=== PATIENT | male | born 1995 | race African-American/Black ===

== ENCOUNTER 2016-12-27 09:17 | Emergency (ER) | payer OTHER ==
[~2016-12-27] VITALS: Ht 175.3 cm; Wt 62.0 kg
[~2016-12-27 09:17] MED LIST: BENZ1TAB PO; DEPA500T3 PO; FLUP1INJ SQ; FLUP5TAB PO
[2016-12-27 09:20] VITALS: BP 125/58; PULSE 68; RESP 15; TEMP 98.1; O2SAT 99
--- NOTE | 2016-12-27 09:47 | PD ---
HPI Chief Complaint: Psychiatric Symptoms Time Seen by Provider: 09:33 Travel History International Travel<30 days: No Contact w/Intl Traveler<30days: No Traveled to known affect area: No History of Present Illness HPI 21-year-old male presents off his medications. He has history of schizophrenia in the records. Patient is a very poor historian. He states that he wants me to look at his throat because it might be off since he ate something weird. He denies fever when I asked but then he starts to state that he is concerned because he needs to eat something fresh. He states he lives with his sister. PFS Past Medical History Narrative Medical By records Hx Anticoagulant Therapy: No Anxiety: Yes Depression: Yes Cancer: No (see emr) Cardiovascular Problems: No (see emr) Chemotherapy: No Cerebrovascular Accident: No Diabetes: No (see emr) Diminished Hearing: No Gastrointestinal Disorders: Yes (STATES STOMACH IS SMALL) Genitourinary: No Headaches: No (see emr) Musculoskeletal: No Psychiatric: Yes (May have compliance problems) Respiratory: No Immunizations Current: Yes Schizophrenia: Yes Seizures: No (see emr) Past Surgical History Surgical History: No Previous Surgery Section: No (see emr) Social History Narrative Social History By records, to me denies Alcohol Use: Yes (Pt denies.) Tobacco Use: No (Pt denies.) Substance Use: Yes (admits to prior history of K2/Flakka use.) Allergies-Medications (Allergen,Severity, Reaction): Coded Allergies: No Known Allergies (Unverified , 12/27/16) Per pt. Reported Meds & Prescriptions Reported Meds & Active Scripts Active Fluphenazine Decanoate Inj (Fluphenazine Decanoate) 125 Mg/5 Ml Inj 25 Mg SQ Q21D Next dose of fluphenazine decanoate due on 07/29/2016. Fluphenazine (Fluphenazine HCl) 5 Mg Tab 5 Mg PO TID 10 Days Talk with your doctor about decreasing the dose of oral Prolixin (fluphenazine) after your next Prolixin Decanoate injection. Depakote ER (Divalproex Sodium) 500 Mg Sanchez 1,000 Mg PO HS 10 Days Review of Systems ROS Limitations: Poor Historian Physical Exam Exam Limitations: Poor Historian Narrative GENERAL: Well-nourished, well-developed patient. Pacing in room SKIN: Warm and dry. HEAD: Normocephalic and atraumatic. EYES: No injection or drainage. ENT: No nasal drainage noted. Mucosa pink and moist. No erythema or exudates. No uvular edema. No uvular, palatal, or tonsillar deviation. Airway patent. NECK: Supple, trachea midline. CARDIOVASCULAR: Regular rate and rhythm RESPIRATORY: Breath sounds equal bilaterally. No accessory muscle use. GASTROINTESTINAL: Abdomen soft, non-tender, nondistended. EXTREMITIES: No edema. NEUROLOGICAL: Awake and alert to name. Motor and sensory grossly within normal limits. Normal speech. Data Data Last Documented VS Vital Signs Date Time Temp Pulse Resp B/P Pulse Ox O2 Delivery O2 Flow Rate FiO2 12/27/16 12:31 58 16 129/76 96 12/27/16 09:20 98.1 Orders Complete Blood Count With Diff (12/27/16 09:40) Basic Metabolic Panel (Bmp) (12/27/16 09:40) Psych Screen (12/27/16 09:40) Drug Screen, Random Urine (12/27/16 09:40) Alcohol (Ethanol) (12/27/16 09:40) Ziprasidone Inj (Geodon Inj) (12/27/16 10:15) Labs Laboratory Tests Test 12/27/16 12/27/16 09:35 09:45 Urine Opiates Screen NEG Urine Barbiturates Screen NEG Urine Amphetamines Screen NEG Urine Benzodiazepines Screen NEG Urine Cocaine Screen NEG Urine Cannabinoids Screen NEG White Blood Count 9.8 TH/MM3 Red Blood Count 4.62 MIL/MM3 Hemoglobin 14.4 GM/DL Hematocrit 41.9 % Mean Corpuscular Volume 90.7 FL Mean Corpuscular Hemoglobin 31.1 PG Mean Corpuscular Hemoglobin 34.3 % Concent Red Cell Distribution Width 13.0 % Platelet Count 194 TH/MM3 Mean Platelet Volume 8.3 FL Neutrophils (%) (Auto) 75.6 % Lymphocytes (%) (Auto) 14.1 % Monocytes (%) (Auto) 10.0 % Eosinophils (%) (Auto) 0.1 % Basophils (%) (Auto) 0.2 % Neutrophils # (Auto) 7.4 TH/MM3 Lymphocytes # (Auto) 1.4 TH/MM3 Monocytes # (Auto) 1.0 TH/MM3 Eosinophils # (Auto) 0.0 TH/MM3 Basophils # (Auto) 0.0 TH/MM3 CBC Comment DIFF FINAL Differential Comment Sodium Level 139 MEQ/L Potassium Level 3.8 MEQ/L Chloride Level 101 MEQ/L Carbon Dioxide Level 28.1 MEQ/L Anion Gap 10 MEQ/L Blood Urea Nitrogen 9 MG/DL Creatinine 0.93 MG/DL Estimat Glomerular Filtration 126 ML/MIN Rate Random Glucose 113 MG/DL Calcium Level 9.4 MG/DL Ethyl Alcohol Level LESS THAN 3 MG/DL MDM Medical Decision Making Medical Screen Exam Complete: Yes Emergency Medical Condition: Yes Medical Record Reviewed: Yes (pmh confirmed) Interpretation(s) CBC & BMP Diagram 12/27/16 09:45 Differential Diagnosis Schizophrenia off medications, URI, electrolyte abnormality Narrative Course Will check blood work and have psychiatry team screen as he appears to be a schizophrenic off his medications. no SI/HI, Mental health screening discussed with the patient. Psychiatric screen ordered. patient getting more anxious and pacing more, will dose with geodon im and reeval as patient states wants something to help with his mind, medically cleared Psychiatrist evaluated patient and he is stable for discharge. Diagnosis Primary Impression: Schizophrenia Qualified Code: F20.9 - Schizophrenia, unspecified type Patient Instructions: General Instructions Additional Instructions: fill your medications, follow with nini christiansen today, return with any emergent need Med/Other Pt SpecificInfo: Other Disposition: 01 DISCHARGE HOME Condition: Stable Mary Wright MD December 27, 2016 09:47
[2016-12-27 10:02] LABS: AUTOMATED NEUTROPHIL # 7.4 TH/MM3 (1.8-7.7); BASOPHIL % 0.2 % (0.0-2.0); EOSINOPHIL % 0.1 % (0.0-4.0); HEMATOCRIT 41.9 % (39.0-51.0); HEMO FLAGS DIFF FINAL; LYMPH % 14.1 % (9.0-44.0); LYMPHOCYTE # 1.4 TH/MM3 (1.0-4.8); MEAN CELL VOLUME 90.7 FL (80.0-100.0); MEAN CORPUSCULAR HEMOGLOBIN 31.1 PG (27.0-34.0); MEAN CORPUSCULAR HGB CONC 34.3 % (32.0-36.0); NEUT % 75.6 % (16.0-70.0); PLATELET COUNT 194 TH/MM3 (150-450); RED BLOOD COUNT 4.62 MIL/MM3 (4.50-5.90); WHITE BLOOD COUNT 9.8 TH/MM3 (4.0-11.0)
[2016-12-27 10:13] LABS: AMPHETAMINE, URINE NEG (NEG); BARBITURATES, URINE NEG (NEG); COCAINE, URINE NEG (NEG)
[2016-12-27] MEDS ORDERED: ZIPRASIDONE MESYLATE 20 MG VIAL IM ONE (10:15)
[2016-12-27 10:27] LABS: ANION GAP 10 MEQ/L (5-15); BICARBONATE 28.1 MEQ/L (21.0-32.0); BLOOD UREA NITROGEN 9 MG/DL (7-18); CHLORIDE 101 MEQ/L (98-107); GLOMERULAR FILTRATION RATE 126 ML/MIN (>89); POTASSIUM 3.8 MEQ/L (3.5-5.1); SODIUM (NA) 139 MEQ/L (136-145)
--- NOTE | 2016-12-27 11:35 | PD ---
History of Present Illness Chief Complaint: Psychiatric Symptoms Time Seen by Provider: 11:15 Travel History International Travel<30 Days: No Contact w/Intl Traveler<30days: No Known affected area: No Legal Status Legal Status: Voluntary History of Present Illness: 21-year-old male brought in voluntarily by police. This physician reviewed the ED D attendings note and patient provided the exact same history to me. He does exhibit looseness of associations which is a symptom of psychosis. He has not been taking his antipsychotic medicine recently, stating "I'm good". He admits to being treated by [facility] in the past. He states he is able to get a follow up appointment there. He would like something to eat and he would like something for the pain in his throat, including Tylenol. This physician finds that even though the patient is likely psychotic with a history of schizophrenia, he currently does not meet Michael act criteria. He states he lives with his sister and he can return there. He repeatedly indicates he has no suicidal or homicidal ideation, plan or intent. His psychosis is not so significant at this point that he is unable to care for himself. Therefore he is being released per his own request. PFSH Past Medical History Medical History: Denies Significant Hx Hx Anticoagulant Therapy: No Weight (Kg): UNK Anxiety: Yes Depression: Yes Chemotherapy: No Cerebrovascular Accident: No Diminished Hearing: No Gastrointestinal Disorders: Yes (STATES STOMACH IS SMALL) Genitourinary: No Musculoskeletal: No Psychiatric: Yes (May have compliance problems) Respiratory: No Immunizations Current: Yes Schizophrenia: Yes Past Surgical History Surgical History: No Previous Surgery Psychiatric History Psychiatric History Hx Psychiatric Treatment: See records for historical records.Many In-Pt stays History of Inpatient Treatment: Yes Guns or firearms in home: No Social History Hx Alcohol Use: No (see emr) Hx Tobacco Use: No (Pt denies.) Hx Substance Use: No (see emr) Substance Use Type: Alcohol Other Substances Used: STATES HE USED DRUGS IN THE PAST Hx of Substance Use Treatment: No Allergies-Medications (Allergen,Severity, Reaction): Coded Allergies: No Known Allergies (Unverified , 12/27/16) Per pt. Reported Meds & Prescriptions Reported Meds & Active Scripts Active Fluphenazine Decanoate Inj (Fluphenazine Decanoate) 125 Mg/5 Ml Inj 25 Mg SQ Q21D Next dose of fluphenazine decanoate due on 07/29/2016. Fluphenazine (Fluphenazine HCl) 5 Mg Tab 5 Mg PO TID 10 Days Talk with your doctor about decreasing the dose of oral Prolixin (fluphenazine) after your next Prolixin Decanoate injection. Depakote ER (Divalproex Sodium) 500 Mg Sanchez 1,000 Mg PO HS 10 Days Review of Systems ROS Limitations: Clinical Condition, Poor Historian Except as stated in HPI: all other systems reviewed are Neg Exam Exam Limitations: Clinical Condition, Psychotic Alert: Yes [place]: Person, Place, Date, Situation Mood: Calm Affect: Appropriate Speech: Clear, Tangential Eye Contact: Indirect Memory Intact: Immediate, Recent, Remote Insight/Judgement Impaired, but not to the degree that he meets Michael act criteria. MDM Medical Decision Making Medical Record Reviewed: Yes Assessment/Plan Patient was offered refills on his psychotropic medications but declined. Patient states he is willing to return to his sister's home and seek follow up at [facility]. This was encouraged by this physician. Therefore, this physician feels the patient should not be Michael acted and he does not need inpatient psychiatric hospitalization at this time. Orders Complete Blood Count With Diff (12/27/16 09:40) Basic Metabolic Panel (Bmp) (12/27/16 09:40) Psych Screen (12/27/16 09:40) Drug Screen, Random Urine (12/27/16 09:40) Alcohol (Ethanol) (12/27/16 09:40) Ziprasidone Inj (Geodon Inj) (12/27/16 10:15) Results Vital Signs Date Time Temp Pulse Resp B/P Pulse Ox O2 Delivery O2 Flow Rate FiO2 12/27/16 09:20 98.1 68 15 125/58 99 Laboratory Tests Test 12/27/16 12/27/16 09:35 09:45 Urine Opiates Screen NEG Urine Barbiturates Screen NEG Urine Amphetamines Screen NEG Urine Benzodiazepines Screen NEG Urine Cocaine Screen NEG Urine Cannabinoids Screen NEG White Blood Count 9.8 Red Blood Count 4.62 Hemoglobin 14.4 Hematocrit 41.9 Mean Corpuscular Volume 90.7 Mean Corpuscular Hemoglobin 31.1 Mean Corpuscular Hemoglobin 34.3 Concent Red Cell Distribution Width 13.0 Platelet Count 194 Mean Platelet Volume 8.3 Neutrophils (%) (Auto) 75.6 Lymphocytes (%) (Auto) 14.1 Monocytes (%) (Auto) 10.0 Eosinophils (%) (Auto) 0.1 Basophils (%) (Auto) 0.2 Neutrophils # (Auto) 7.4 Lymphocytes # (Auto) 1.4 Monocytes # (Auto) 1.0 Eosinophils # (Auto) 0.0 Basophils # (Auto) 0.0 CBC Comment DIFF FINAL Differential Comment Sodium Level 139 Potassium Level 3.8 Chloride Level 101 Carbon Dioxide Level 28.1 Anion Gap 10 Blood Urea Nitrogen 9 Creatinine 0.93 Estimat Glomerular Filtration 126 Rate Random Glucose 113 Calcium Level 9.4 Ethyl Alcohol Level LESS THAN 3 Diagnosis Primary Impression: Schizophrenia, disorganized type Michael Carnes MD December 27, 2016 11:35
[2016-12-27 12:31] VITALS: BP 129/76
== END 2016-12-27 12:58 | disposition home or self-care (01) ==
LOC: NEPC 09:17
DX: F20.1 Disorganized schizophrenia (principal)
CPT/HCPCS: 80048; 80307; 85025; 96372; 99284; J3486

== ENCOUNTER 2017-03-22 23:18 | Emergency (ER) | payer OTHER ==
[~2017-03-22] VITALS: Ht 175.3 cm; Wt 65.0 kg
[~2017-03-22 23:18] MED LIST changes: -BENZ1TAB PO
[2017-03-22 23:21] VITALS: BP 115/67; PULSE 89; RESP 16; TEMP 98.2; O2SAT 99
== END 2017-03-23 | disposition left against medical advice (07) ==
LOC: NED 23:18
DX: M79.1 Myalgia (principal); Z53.21 Procedure and treatment not carried out due to patient leaving prior to being seen by health care provider
CPT/HCPCS: 99281

== ENCOUNTER 2018-07-10 23:20 | Inpatient (IN) ==
[2018-07-11] MEDS ORDERED: Piperacil/Tazo 4.5 GM Premix 4.5 GM/100 ML BAG IV.SIG ONE (00:17)
[2018-07-11] MEDS ORDERED: Dexamethasone Inj 20 MG/5 ML Vial IV.PUSH ONE (00:17)
[2018-07-11] MEDS ORDERED: Acetaminophen 325 MG Tablet PO ONE (00:17)
[2018-07-11] MEDS ORDERED: Sod Chloride 0.9% Inj 1,000 ML IV.SIG SCH (00:30)
[2018-07-11 00:43] LABS: Baso % (Auto) 0.4 % (0.0-2.0); Eos # (Auto) 0.1 th/mm3 (0.0-0.4); Eos % (Auto) 0.6 % (0.0-4.0); Hematocrit 42.2 % (39.0-51.0); Hemoglobin 14.4 gm/dL (13.0-17.0); Lymph # (Auto) 1.7 th/mm3 (1.0-4.8); Lymph % (Auto) 14.9 % (9.0-44.0); Mean Corpuscular Hemoglobin 32.3 pg (27.0-34.0); Mean Corpuscular Volume 94.9 fL (80.0-100.0); Mean Platelet Volume 7.7 fL (7.0-11.0); Mono # (Auto) 1.4 th/mm3 (0.0-0.9); Mono % (Auto) 12.2 % (0.0-8.0); Neut # (Auto) 8.5 th/mm3 (1.8-7.7); Neut % (Auto) 71.9 % (16.0-70.0); Platelet Count 213 th/mm3 (150-450); Red Blood Count 4.45 mil/mm3 (4.50-5.90); White Blood Count 11.8 th/mm3 (4.0-11.0)
--- NOTE | 2018-07-11 00:46 | ED ---
HPI General Chief complaint: Respiratory Symptoms Stated complaint: Sore throat Time Seen by Provider: 07/10/18 23:29 History of Present Illness HPI narrative: Patient is a 22-year-old male presents emergency department for evaluation of sore throat, difficulty swallowing spitting up phlegm and just not feeling well for the past few days. He states he is otherwise healthy. Patient states that his never had this happen to him before, no chest pain no shortness of breath. He also endorse some right-sided ear pain as well as some right-sided jaw pain. He states he needs some advice on what he can eat while he is getting over this. Symptoms moderate, for the past few days, gradually worsening, associated signs symptoms in context as above. Related Data Previous Rx's Medication Instructions Recorded amoxicillin-pot clavulanate 1 tab PO BID #28 tab 07/11/18 [Augmentin] olanzapine 10 mg PO HS #0 tab 07/11/18 prednisone 20 mg PO DAILY #5 tab 07/11/18 Allergies Allergy/AdvReac Type Severity Reaction Status Date / Time No Known Allergies Allergy Verified 07/10/18 23:24 Review of Systems ROS: all other systems reviewed are negative PMFSH Medical History Medical History Depression (Acute) Patient denies medical problems (Acute) Surgical History Surgical History No history of previous surgery (Acute) Family History Family History Other No pertinent family history Social History Social History Substance History: Active Abuse Second Hand Smoke Exposure: No Smoking Status: Never smoker Tobacco Type: Cigarettes How Often Do You Have a Drink Containing Alcohol: Never Recent Travel in [facility] within the Last 8 Weeks: No Recent Out of Country Travel within the Last 8 Weeks: No Substance Abuse Detail Marijuana: Substance Use Status: Active Immunization History Tetanus Immunization: Unsure Exam Narrative Exam Narrative: GENERAL: Well-developed well-nourished no obvious distress, tolerating his secretions well. No stridor. SKIN: Focused skin assessment warm/dry. HEAD: Atraumatic. Normocephalic. EYES: Pupils equal and round. No scleral icterus. No injection or drainage. ENT: No nasal bleeding or discharge. Mucous membranes pink and moist. No stridor, there is a significant right sided peritonsillar abscess, he only has one finger trismus preventing examination of the posterior oropharynx. He does appear to be protecting his airway. He is able to swallow. There is some right -sided lymphadenopathy on the anterior cervical chain. There is also tenderness over the right TMJ. There is no mastoid tenderness. TMs are clear bilaterally. There is no erythema the anterior neck, NECK: Trachea midline. No JVD. CARDIOVASCULAR: Regular rate and rhythm. No murmur appreciated. No murmurs gallops rubs, no Morena's crunch. RESPIRATORY: No accessory muscle use. Clear to auscultation. Breath sounds equal bilaterally. GASTROINTESTINAL: Abdomen soft, non-tender, nondistended. Hepatic and splenic margins not palpable. MUSCULOSKELETAL: No obvious deformities. No clubbing. No cyanosis. No edema. NEUROLOGICAL: Awake and alert. No obvious cranial nerve deficits. Motor grossly within normal limits. Normal speech. PSYCHIATRIC: Appropriate mood and affect; insight and judgment normal. Course Initial Documented Vital Signs Temperature 100.5 F H 07/10/18 23:24 Pulse Rate 79 07/10/18 23:24 Respiratory Rate 18 07/10/18 23:24 Blood Pressure 114/61 07/10/18 23:24 Pulse Oximetry 99 07/10/18 23:24 Last Documented Vital Signs Temperature 98.3 F 07/12/18 16:00 Pulse Rate 75 07/12/18 16:00 Respiratory Rate 17 07/12/18 16:00 Blood Pressure 110/60 07/12/18 16:00 Pulse Oximetry 100 07/12/18 16:00 Medical Decision Making [facility] Narrative Medical decision making narrative: Patient room in the emergency department, he appears to have a peritonsillar abscess febrile to 100.5. Decadron 10 mg, Tylenol, Zosyn ordered for him, blood cultures ordered and a CT scan is pending. The end of my shift at the patient was discussed with Dr. Grijalva who will assume care of the patient. Discussed the patient will probably require admission to the hospital.. 1:38 AM. Patient was seen by ED physician and signed out to me. CT scan soft tissue neck shows peritonsillar abscess. Patient will be admitted with ENT consultation. Medical Screen Exam Complete: Yes Emergency Medical Condition: Yes Lab Data Lab results reviewed: Yes I reviewed the patient's lab results. Result diagrams: 07/11/18 05:33 07/12/18 08:24 Lab Results 07/11/18 07/11/18 07/11/18 Range/Units 00:33 00:33 00:33 WBC 11.8 H (4.0-11.0) th/mm3 RBC 4.45 L (4.50-5.90) mil/mm3 Hgb 14.4 (13.0-17.0) gm/dL Hct 42.2 (39.0-51.0) % MCV 94.9 (80.0-100.0) fL MCH 32.3 (27.0-34.0) pg MCHC 34.0 (32.0-36.0) % RDW 13.0 (11.6-17.2) % Plt Count 213 (150-450) th/mm3 MPV 7.7 (7.0-11.0) fL Neut % (Auto) 71.9 H (16.0-70.0) % Lymph % (Auto) 14.9 (9.0-44.0) % [place] % (Auto) 12.2 H (0.0-8.0) % Eos % (Auto) 0.6 (0.0-4.0) % Baso % (Auto) 0.4 (0.0-2.0) % Neut # (Auto) 8.5 H (1.8-7.7) th/mm3 Lymph # (Auto) 1.7 (1.0-4.8) th/mm3 [place] # (Auto) 1.4 H (0.0-0.9) th/mm3 Eos # (Auto) 0.1 (0.0-0.4) th/mm3 Baso # (Auto) 0.0 (0.0-0.2) th/mm3 WBC Differential . Differential Comment Auto diff final Sodium 138 (136-145) meq/L Potassium 4.1 (3.5-5.1) meq/L Chloride 100 (98-107) meq/L Carbon Dioxide 33.9 H (21.0-32.0) meq/L Anion Gap 4 L (5-15) meq/L BUN 7 (7-18) mg/dL Creatinine 0.93 (0.60-1.30) mg/dL Estimated GFR Greater than 89 (>89) mL/min Random Glucose 100 (74-106) mg/dL Lactic Acid 0.5 (0.4-2.0) mmol/L Calcium 8.8 (8.5-10.1) mg/dL Magnesium 2.2 (1.5-2.5) mg/dL Total Bilirubin 0.8 (0.2-1.0) mg/dL AST 22 (15-37) U/L ALT 24 (12-78) U/L Alkaline Phosphatase 77 (45-117) U/L Total Protein 8.3 H (6.4-8.2) g/dL Albumin 3.5 (3.4-5.0) g/dL Lipase 48 L (73-393) U/L Urine Color (Yellw/Straw) Urine Clarity (Clear) Urine pH (5.0-8.5) Ur Specific [place] (1.002-1.035) Urine Protein (Neg-Trace) mg/dL Urine Glucose (UA) (Negative) mg/dL Urine Ketones (Negative) mg/dL Urine Occult Blood (Negative) Urine Nitrate (Negative) Urine Bilirubin (Negative) Urine Urobilinogen (Less than 2) mg/dL Ur Leukocyte Esterase (Negative) Urine RBC (0-3) /hpf Urine WBC (0-5) /hpf Micro UA Comment Ur Microscopic Review Urine Culture Comments 07/11/18 07/11/18 07/12/18 Range/Units 00:46 05:33 08:24 WBC 15.2 H (4.0-11.0) th/mm3 RBC 4.61 (4.50-5.90) mil/mm3 Hgb 15.3 (13.0-17.0) gm/dL Hct 43.9 (39.0-51.0) % MCV 95.1 (80.0-100.0) fL MCH 33.3 (27.0-34.0) pg MCHC 35.0 (32.0-36.0) % RDW 12.7 (11.6-17.2) % Plt Count 203 (150-450) th/mm3 MPV 7.9 (7.0-11.0) fL Neut % (Auto) 90.0 H (16.0-70.0) % Lymph % (Auto) 6.7 L (9.0-44.0) % [place] % (Auto) 3.0 (0.0-8.0) % Eos % (Auto) 0.0 (0.0-4.0) % Baso % (Auto) 0.3 (0.0-2.0) % Neut # (Auto) 13.6 H (1.8-7.7) th/mm3 Lymph # (Auto) 1.0 (1.0-4.8) th/mm3 [place] # (Auto) 0.4 (0.0-0.9) th/mm3 Eos # (Auto) 0.0 (0.0-0.4) th/mm3 Baso # (Auto) 0.0 (0.0-0.2) th/mm3 WBC Differential . Differential Comment Auto diff final Sodium 141 (136-145) meq/L Potassium 4.3 (3.5-5.1) meq/L Chloride 103 (98-107) meq/L Carbon Dioxide 33.1 H (21.0-32.0) meq/L Anion Gap 5 (5-15) meq/L BUN 12 (7-18) mg/dL Creatinine 0.90 (0.60-1.30) mg/dL Estimated GFR Greater than 89 (>89) mL/min Random Glucose 105 (74-106) mg/dL Lactic Acid (0.4-2.0) mmol/L Calcium 9.2 (8.5-10.1) mg/dL Magnesium (1.5-2.5) mg/dL Total Bilirubin 0.4 (0.2-1.0) mg/dL AST 12 L (15-37) U/L ALT 20 (12-78) U/L Alkaline Phosphatase 77 (45-117) U/L Total Protein 8.1 (6.4-8.2) g/dL Albumin 3.4 (3.4-5.0) g/dL Lipase (73-393) U/L Urine Color Yellow (Yellw/Straw) Urine Clarity Clear (Clear) Urine pH 6.0 (5.0-8.5) Ur Specific [place] 1.008 (1.002-1.035) Urine Protein Negative (Neg-Trace) mg/dL Urine Glucose (UA) Negative (Negative) mg/dL Urine Ketones Negative (Negative) mg/dL Urine Occult Blood Small H (Negative) Urine Nitrate Negative (Negative) Urine Bilirubin Negative (Negative) Urine Urobilinogen 1.0 (Less than 2) mg/dL Ur Leukocyte Esterase Negative (Negative) Urine RBC 1 (0-3) /hpf Urine WBC Less than 1 (0-5) /hpf Micro UA Comment Culture not ind Ur Microscopic Review Not Reportable Urine Culture Comments Culture not ind Imaging Data Attestation: I personally reviewed and interpreted this imaging study as follows : Radiologist's impression: Soft Tissue Neck CT 07/11/18 00:18 CONCLUSION: 1. 4 cm right-sided tonsillar abscess. 2. Mild right maxillary sinus disease. Discharge Plan Discharge Disposition Patient Disposition: ED Admit(ED Internal Use Only) Discharge Condition Condition: Stable Discharge Order Discharge Orders: Discharge Order (Routine); Ordered 07/12/18 Ordered By: Michael Geller ED Use Only Admit Order (Routine); Ordered 07/11/18 Ordered By: Tod Grijalva Discharge Details Diagnosis: Abscess, peritonsillar Physicians Team ED Provider: Dwayne Hua Primary Care Provider: Primary Care Esperanza William Attending Provider: Michael Geller Other Providers: Fuentes Caavnaugh Status ED Status: Left Department Discharge Information Discharge Date/Time: 07/11/18 15:23
[2018-07-11 00:58] LABS: Bilirubin,Urine Negative (Negative); Clarity,Urine Clear (Clear); Color,Urine Yellow (Yellw/Straw); Glucose,Urine (UA) Negative (Negative); Leukocyte Esterase,Urine Negative (Negative); Nitrite,Urine Negative (Negative); Specific Gravity,Urine 1.008 (1.002-1.035)
[2018-07-11 01:15] LABS: Alkaline Phosphatase 77 U/L (45-117); Total Protein 8.3 g/dL (6.4-8.2)
[2018-07-11 01:20] LABS: Alanine Aminotransferase 24 U/L (12-78); Albumin 3.5 g/dL (3.4-5.0); Anion Gap 4 meq/L (5-15); Aspartate Aminotransferase 22 U/L (15-37); Blood Urea Nitrogen 7 mg/dL (7-18); Calcium 8.8 mg/dL (8.5-10.1); Carbon Dioxide 33.9 meq/L (21.0-32.0); Chloride 100 meq/L (98-107); Glomerular Filtration Rate Greater Than 89 mL/min (>89); Glucose,Random 100 mg/dL (74-106); Lipase 48 U/L (73-393); Magnesium 2.2 mg/dL (1.5-2.5); Potassium 4.1 meq/L (3.5-5.1); Sodium 138 meq/L (136-145)
--- NOTE | 2018-07-11 01:21 | CT ---
EXAM DATE: 07/11/2018 1:14 AM EST AGE/SEX: 22 years / Male INDICATIONS: Sore throat with fever. CLINICAL DATA: This is the patient's initial encounter. Patient reports that signs and symptoms have been present for 1 day and indicates a pain score of 7/10. MEDICAL/SURGICAL HISTORY: None. None. RADIATION DOSE: 16.45 CTDI (mGy) COMPARISON: No prior exams available for comparison. TECHNIQUE: Helical acquisition was performed using a multirow detector CT scanner during the adminis tration of 70 ml Omnipaque 350 (iohexol) nonionic water-soluble contrast as a single exam dose. Usi ng automated exposure control and adjustment of the mA and/or kV according to patient size, radiation dose was kept as low as reasonably achievable to obtain optimal diagnostic quality images. DICOM fo rmat image data is available electronically for review and comparison. FINDINGS: Nasopharynx: The nasopharyngeal airway has a normal configuration. No mucosal thickening or mass is seen. Oropharynx: Marked soft tissue asymmetry in the posterior oropharynx centered at the right tonsillar pillar. There is a lobulated 4.0 x 3.3 cm peripherally enhancing fluid collection indicating an absc ess. Results and mild mass effect. The airway is open. Adenoid hypertrophy also noted. Larynx: The supraglottic, glottic, and infraglottic structures are intact. Parapharyngeal: The parapharyngeal space is intact. Salivary Glands: The parotid and submandibular glands are intact. Lymph Nodes: Multiple mildly prominent jugular chain lymph nodes bilaterally. Largest is seen on the right at the level the angle of mandible measuring 1.4 cm in short axis dimension. No necrotic lymph nodes identified. Thyroid: Homogeneous enhancement without evidence of nodule. Bones: Mucosal thickening of the right maxillary sinus. CONCLUSION: 1. 4 cm right-sided tonsillar abscess. 2. Mild right maxillary sinus disease. Electronically signed by: Dane Hardin MD 07/11/2018 1:19 AM EST
[2018-07-11] MEDS ORDERED: Bisacodyl 10 MG Supp RECTAL PRN (01:58)
[2018-07-11] MEDS ORDERED: Acetaminophen 325 MG Tablet PO PRN (01:58)
[2018-07-11] MEDS ORDERED: Ampicillin/Sulbactam Inj 3 GM in Sodium Chloride 0.9% Inj 100 ML IV.SIG SCH (02:00)
[2018-07-11] MEDS: Sod Chloride 0.9% Inj 1,000 ML IV.CONT SCH ×3 (02:09→23:42)
[2018-07-11] MEDS: Ampicillin/Sulbactam Inj 3 GM in Sodium Chloride 0.9% Inj 100 ML IV.SIG SCH ×4 (05:46→23:42)
[2018-07-11 05:51] LABS: Baso % (Auto) 0.3 % (0.0-2.0); Hematocrit 43.9 % (39.0-51.0); Hemoglobin 15.3 gm/dL (13.0-17.0); Lymph % (Auto) 6.7 % (9.0-44.0); Mean Corpuscular Hemoglobin 33.3 pg (27.0-34.0); Mean Corpuscular Volume 95.1 fL (80.0-100.0); Mean Platelet Volume 7.9 fL (7.0-11.0); Mono # (Auto) 0.4 th/mm3 (0.0-0.9); Neut # (Auto) 13.6 th/mm3 (1.8-7.7); Platelet Count 203 th/mm3 (150-450); Red Blood Count 4.61 mil/mm3 (4.50-5.90); Red Cell Distribution Width 12.7 % (11.6-17.2); White Blood Count 15.2 th/mm3 (4.0-11.0)
--- NOTE | 2018-07-11 13:56 | P.HPIM ---
History of Present Illness Primary Care Physician: No Primary Care Physician Chief Complaint: Sore throat History of Present Illness: This is a 22-year-old male with a history of depression on Zyprexa. He presents to the emergency department yesterday because of sore throat, difficulty swallowing, right ear and right jaw pain for several days. Denies fever or chills. CT scan shows tonsillar abscess and patient received Decadron and Zosyn. Today, he feels better and wants to try food. He is awaiting ENT consultation. Discussed with nursing, to obtain throat culture he has right peritonsillar abscess with white exudate. Patient states he is quitting tobacco use. All other systems reviewed negative. Diagnosis (1) Patient denies medical problems: Inpatient Certification Inpatient Certification: I certify that the inpatient services were ordered in accordance with Medicare regulations governing the order. This includes certification that hospital inpatient services are reasonable and necessary and in the case of services not specified as inpatient-only under 42 CFR 419.22(n), that they are appropriately provided as inpatient services in accordance to with the 2-midnight benchmark under 43 CFR 412.3(e) Estimated Total Length of Stay (Days): 2 Plans for Post Hospital Care: Not yet determined Review of Systems Review of Systems: all other systems reviewed are negative [facility] Medical History Medical History Depression (Acute) Patient denies medical problems (Acute) Surgical History Surgical History No history of previous surgery (Acute) Family History Family History Other No pertinent family history Social History Social History Substance History: Active Abuse Smoking Status: Current some day smoker Tobacco Type: Cigarettes How Often Do You Have a Drink Containing Alcohol: 2 to 4 times a month Recent Travel in [facility] within the Last 8 Weeks: No Recent Out of Country Travel within the Last 8 Weeks: No Substance Abuse Detail Marijuana: Substance Use Status: Active Immunization History Tetanus Immunization: Unsure Medications and Allergies Allergies Allergy/AdvReac Type Severity Reaction Status Date / Time No Known Allergies Allergy Verified 07/10/18 23:24 Home Medications Medication Instructions Recorded Confirmed Type No Known Home Medications 07/10/18 07/10/18 History Active Medications: Active Medications Acetaminophen (Tylenol) 650 mg PO Q4H PRN PRN Reason: Temp > 100.4 Al Hydroxide/Mg Hydroxide (Milk Of Magnesia Liq) 30 ml PO Q12H PRN PRN Reason: Mild Constipation Bisacodyl (Dulcolax Supp) 10 mg RECTAL DAILY PRN PRN Reason: SEVERE CONSITIPATION Dexamethasone Sodium Phosphate (Decadron Inj) 4 mg IV.PUSH Q6HR [facility] Last Admin: 07/11/18 12:19 Dose: 4 mg Sodium Chloride (Ns Inj) 1,000 mls @ 100 mls/hr IV.CONT .Q10H [facility] Last Admin: 07/11/18 12:19 Dose: 100 mls/hr Ampicillin Sodium/Sulbactam (Sodium 3 gm/ Sodium Chloride) 100 mls @ 200 mls/ hr IV.SIG Q6H [facility] Last Infusion: 07/11/18 12:05 Dose: Infused Lactulose (Lactulose Liq) 30 ml PO DAILY PRN PRN Reason: SEVERE CONSITIPATION Ondansetron HCl (Zofran Inj) 4 mg IV.PUSH Q6H PRN PRN Reason: NAUSEA OR VOMITING Sennosides (Senokot) 17.2 mg PO Q12H PRN PRN Reason: Moderate Constipation Sodium Chloride (Ns Flush) 2 ml IV.FLUSH PRN PRN PRN Reason: FLUSH AFTER USING IV ACCESS Sodium Chloride (Ns Flush) 2 ml IV.FLUSH BID [facility] Last Admin: 07/11/18 09:20 Dose: 2 ml Sodium Chloride (Ns Flush) 2 ml IV.FLUSH PRN PRN PRN Reason: FLUSH AFTER USING IV ACCESS Physical Exam Vital signs: Last Vital Signs Temp 100.5 F H 07/10/18 23:24 Pulse 62 07/11/18 09:31 Resp 18 07/11/18 09:31 BP 111/54 L 07/11/18 09:31 Pulse Ox 99 07/11/18 09:31 Intake & Output 07/09/18 07/10/18 07/11/18 07/12/18 06:59 06:59 06:59 06:59 Intake Total 1200 / 1200 1100 / 1100 Balance 1200 / 1200 1100 / 1100 Weight 79.379 kg Narrative: GENERAL: Well-developed, well-nourished in no distress SKIN: Warm and dry. HEAD: Atraumatic. Normocephalic. EYES: Pupils equal and round. No scleral icterus. No injection or drainage. ENT: No nasal bleeding or discharge. Mucous membranes pink and moist. Tympanic membrane intact. Mild trismus right peritonsillar abscess with white exudate NECK: Trachea midline. No JVD. CARDIOVASCULAR: Regular rate and rhythm. RESPIRATORY: No accessory muscle use. Clear to auscultation. Breath sounds equal bilaterally. GASTROINTESTINAL: Abdomen soft, non-tender, nondistended. MUSCULOSKELETAL: Extremities without clubbing, cyanosis, or edema. No obvious deformities. NEUROLOGICAL: Awake and alert. No obvious cranial nerve deficits. Motor grossly within normal limits. Five out of 5 muscle strength in the arms and legs. Normal speech. PSYCHIATRIC: Appropriate mood and affect; insight and judgment normal. Results Labs CBC & Chem 7: 07/11/18 05:33 07/11/18 00:33 Imaging Impressions Soft Tissue Neck CT 07/11/18 00:18 CONCLUSION: 1. 4 cm right-sided tonsillar abscess. 2. Mild right maxillary sinus disease. Caprini VTE Risk Assessment Caprini VTE Risk Assessment: No/Low Risk (score <= 1) Caprini Risk Assessment Model: Point Value = 1 Point Value = 2 Point Value = 3 Point Value = 5 Age 41-60 Minor surgery BMI > 25 kg/m2 Swollen legs Varicose veins or History of unexplained or recurrent spontaneous Oral contraceptives or hormone replacement Sepsis (< 1 month) Serious lung disease, including pneumonia (< 1 month) Abnormal pulmonary function Acute myocardial infarction Congestive heart failure (< 1 month) History of inflammatory bowel disease Medical patient at bed rest Age 61-74 Arthroscopic surgery Major open surgery (> 45 min) Laparoscopic surgery (> 45 min) Malignancy Confined to bed (> 72 hours) Immobilizing plaster cast Central venous access Age >= 75 History of VTE Family history of VTE Factor V Leiden Prothrombin [id number] Lupus anticoagulant Anticardiolipin antibodies Elevated serum homocysteine Heparin-induced thrombocytopenia Other congenital or acquired thrombophilia Stroke (< 1 month) Elective arthroplasty Hip, pelvis, or leg fracture Acute spinal cord injury (< 1 month) Prophylaxis Regimen: Total Risk Factor Score Risk Level Prophylaxis Regimen 0-1 Low Early ambulation 2 Moderate Order ONE of the following: *Sequential Compression Device (SCD) *Heparin 5000 units SQ BID 3-4 Higher Order ONE of the following medications: *Heparin 5000 units SQ TID *Enoxaparin/Lovenox 40 mg SQ daily (WT < 150 kg, CrCl > 30 mL/min) *Enoxaparin/Lovenox 30 mg SQ daily (WT < 150 kg, CrCl > 10-29 mL/min) *Enoxaparin/Lovenox 30 mg SQ BID (WT < 150 kg, CrCl > 30 mL/min) AND/OR *Sequential Compression Device (SCD) 5 or more Highest Order ONE of the following medications: *Heparin 5000 units SQ TID (Preferred with Epidurals) *Enoxaparin/Lovenox 40 mg SQ daily (WT < 150 kg, CrCl > 30 mL/min) *Enoxaparin/Lovenox 30 mg SQ daily (WT < 150 kg, CrCl > 10-29 mL/min) *Enoxaparin/Lovenox 30 mg SQ BID (WT < 150 kg, CrCl > 30 mL/min) AND *Sequential Compression Device (SCD) Assessment and Plan (1) Patient denies medical problems: Code(s): Z78.9 - Other specified health status Status: Acute Plan This is a 22-year-old male with a history of depression on Zyprexa. He presents to the emergency department yesterday because of sore throat, difficulty swallowing, right ear and right jaw pain for several days. Denies fever or chills. CT scan shows right tonsillar abscess and patient received Decadron and Zosyn. Right tonsillar abscess. Continue IV Unasyn and Decadron and start liquid diet advance as tolerated. Discontinue IV hydration. Obtain full cultures. Await ENT consultation DVT prophylaxis with SCD and early ambulation Discharge when cleared by ENT
[2018-07-11] MEDS ORDERED: OLANZapine 10 MG Tablet PO SCH (21:00)
[2018-07-12] MEDS: Ampicillin/Sulbactam Inj 3 GM in Sodium Chloride 0.9% Inj 100 ML IV.SIG SCH ×3 (05:59→16:03)
--- NOTE | 2018-07-12 08:12 | P.PN ---
Subjective Interval history: Follow-up right tonsillar abscess July 12, 2018-patient seen and examined, afebrile and reported improvement of neck/oral pain. Awaiting for evaluation from ENT Physical Exam Vital signs: Vital Signs 07/11/18 09:31 07/11/18 16:00 07/11/18 20:32 Temperature 97.7 F 97.7 F Pulse Rate 62 68 66 Respiratory Rate 18 24 24 Blood Pressure 111/54 L 113/63 108/56 L Pulse Oximetry 99 100 98 07/12/18 00:00 07/12/18 04:15 Temperature 97.5 F L 97.4 F L Pulse Rate 48 L 52 L Respiratory Rate 16 16 Blood Pressure 109/59 L 104/52 L Pulse Oximetry 100 99 Intake & Output 07/11/18 07/12/18 07/12/18 18:59 06:59 18:59 Intake Total 1100 / 1100 1338 / 1338 Balance 1100 / 1100 1338 / 1338 Weight 79.379 kg Intake: IV 1100 / 1100 598 / 598 NS Inj 1,000 ML @ 100 mls/hr IV 1000 / 1000 398 / 398 .CONT .Q10H [facility] Rx#:[id number] Unasyn Inj 3 GM In NS Inj 100 100 / 100 200 / 200 ML @ 200 mls/hr IV.SIG Q6H [facility] Rx#:[id number] Oral 740 / 740 Other: # Voids 3 Weight On Admission 79.379 kg Narrative: GENERAL: NAD SKIN: Warm and dry. HEAD: Atraumatic. Normocephalic. EYES: Pupils equal and round. No scleral icterus. No injection or drainage. ENT: No nasal bleeding or discharge. Right tonsillar abscess CARDIOVASCULAR: Regular rate and rhythm. RESPIRATORY: No accessory muscle use. Clear to auscultation. Breath sounds equal bilaterally. GASTROINTESTINAL: Abdomen soft, non-tender, nondistended. Hepatic and splenic margins not palpable. MUSCULOSKELETAL: Extremities without clubbing, cyanosis, or edema. No obvious deformities. NEUROLOGICAL: Awake and alert. No obvious cranial nerve deficits. Motor grossly within normal limits. Five out of 5 muscle strength in the arms and legs. Normal speech. PSYCHIATRIC: Appropriate mood and affect; insight and judgment normal. Results - Labs CBC & Chem 7: 07/11/18 05:33 07/11/18 00:33 Assessment and Plan - Assessment (1) Patient denies medical problems Code(s): Z78.9 - Other specified health status Status: Acute - Plan 22-year-old man with Right tonsillar abscess-improving Currently on IV Unasyn and IV Decadron pending culture report Appreciate input from ENT Pain management accordingly History of depression On Zyprexa DVT prophylaxis: Bilateral SCDs Discharge patient to home Condition on discharge: Improved Regular Diet as tolerated Ad Julee activity Rx written:see EMR Follow-up with primary care physician ENT as needed
--- NOTE | 2018-07-12 08:17 | MB ---
cc: Fuentes Cavanaugh MD DATE: 07/12/2018 CHIEF COMPLAINT: Peritonsillar abscess. HISTORY OF PRESENT ILLNESS: The patient is a pleasant male with no history of prior peritonsillar abscess, who presented to the ER with throat pain, difficulty swallowing. CT scan was consistent with a right peritonsillar abscess. He stated over the last 24 hours pain has been dramatically improved. The patient states that there is minimal discomfort at all. He is tolerating p.o. as well. Denies having shortness of breath. PHYSICAL EXAMINATION: On examination today, there is no evidence of peritonsillar abscess and only minimal fullness and erythema in the right peritonsillar area. There is no tenderness to palpation to the area. The neck is without any significant adenopathy. Throat is wide open. ASSESSMENT: Peritonsillar abscess, resolving. I recommend the patient stay for 2 more doses of antibiotics as it has only been slightly more than 24 hours and the abscess was somewhat significant size initially. The patient is due for the second dose roughly this evening. I recommend the patient get the final dose of antibiotics this evening an hour prior to his scheduled as he is somewhat anxious to leave. I also recommend stopping the standing order of Decadron and recommend giving 8 mg of Decadron IV for his final dose at lunchtime today. I recommend the patient going home upon discharge this evening with 2 weeks of antibiotics and a Medrol Dosepak. The patient may followup with ENT as needed. This management plan recommended obviously to be cleared by the home team. Fuentes Cavanaugh MD [facility]/rs , 08:03 AM , 08:09 AM
[2018-07-12] MEDS: Sod Chloride 0.9% Inj 1,000 ML IV.CONT SCH (09:40)
[2018-07-12 09:47] LABS: Albumin 3.4 g/dL (3.4-5.0); Aspartate Aminotransferase 12 U/L (15-37); Blood Urea Nitrogen 12 mg/dL (7-18); Calcium 9.2 mg/dL (8.5-10.1); Carbon Dioxide 33.1 meq/L (21.0-32.0); Glomerular Filtration Rate Greater Than 89 mL/min (>89); Glucose,Random 105 mg/dL (74-106)
[2018-07-12 09:48] LABS: Alanine Aminotransferase 20 U/L (12-78)
[2018-07-12 09:50] LABS: Alkaline Phosphatase 77 U/L (45-117); Total Protein 8.1 g/dL (6.4-8.2)
[2018-07-12 09:51] LABS: Anion Gap 5 meq/L (5-15); Chloride 103 meq/L (98-107); Potassium 4.3 meq/L (3.5-5.1); Sodium 141 meq/L (136-145)
== END 2018-07-12 17:16 | disposition home or self-care (01) ==
LOC: NEPD 23:20 → NEDA 07-11 01:51 → NEDH 07-11 06:24 → H6YA 07-11 15:28
PROVIDERS: ADMIT Hospitalist; ATTEND Hospitalist